=== PATIENT | female | born 1960 | race Caucasian/White ===

== ENCOUNTER 2017-03-10 14:37 | Emergency (ER) | payer OTHER ==
[~2017-03-10] VITALS: Ht 170.2 cm; Wt 44.2 kg
[2017-03-10 14:39] VITALS: BP 116/67; PULSE 82; RESP 16; TEMP 97.9; O2SAT 97
[2017-03-10] MEDS ORDERED: VITA10002 PO (14:54)
[2017-03-10] MEDS ORDERED: VITA100064 PO (14:54)
[2017-03-10] MEDS ORDERED: MULT1TAB46 PO (14:54)
[2017-03-10] MEDS ORDERED: ESTR1.25 PO (14:54)
[2017-03-10] MEDS ORDERED: HYDR-3580 PO (14:54)
--- NOTE | 2017-03-10 16:02 | PD ---
HPI Chief Complaint: Musculoskeletal Complaint Time Seen by Provider: 15:00 Travel History International Travel<30 days: No Contact w/Intl Traveler<30days: No Traveled to known affect area: No History of Present Illness HPI 56-year-old female presents to the emergency room for evaluation of left knee pain and swelling for the past 2 days. Patient states she noticed pain after bending and climbing a ladder while doing home improvement. States the swelling started this morning and has gradually worsened throughout the day. She denies any acute trauma or injury. Denies history of knee problems. States the pain radiates up into her groin. She had a knee brace on last night and woke up with left lower extremity edema that has since cleared. She has not been able to walk on it without severe pain. Patient has generalized to this anterior knee and worsened with range of motion. She reports occasional paresthesias. She took half of a Lortab yesterday without any relief in symptoms. PFSH Past Medical History Diminished Hearing: No Musculoskeletal: Yes (chronic back pain) Immunizations Current: Yes Tetanus Vaccination: < 5 Years Influenza Vaccination: No ?: Not Past Surgical History Hysterectomy: Yes Oral Surgery: Yes (implants) Tonsillectomy: Yes Other Surgery: Yes (breast aug) Social History Alcohol Use: No Tobacco Use: Yes (oc) Substance Use: No Allergies-Medications (Allergen,Severity, Reaction): Coded Allergies: Morphine (Verified Allergy, Unknown, 03/10/17) Naproxen (Verified Allergy, Unknown, 03/10/17) Tylenol (Verified Allergy, Unknown, 03/10/17) Uncoded Allergies: AVALOX (Allergy, Unknown, 03/10/17) Reported Meds & Prescriptions Reported Meds & Active Scripts Active Reported Hydrocodone-Acetaminophen 7.5-325 mg Tab 1 Tab PO Q4H PRN Multi Vitamin Daily (Multiple Vitamin) 1 Tab Tab 1 Tab PO DAILY Vitamin D (Cholecalciferol) 1,000 Unit Tab 1,000 Units PO DAILY Vitamin B-12 (Cyanocobalamin) 1,000 Mcg Tab 1,000 Mcg PO DAILY Premarin (Estrogens Conjugated) 1.25 Mg Tab 2.5 Mg PO DAILY Review of Systems Except as stated in HPI: all other systems reviewed are Neg Physical Exam Narrative GENERAL: Well-nourished, well-developed female in no acute distress. Afebrile. SKIN: Focused skin assessment warm/dry. No ecchymosis or erythema. HEAD: Normocephalic. EYES: No scleral icterus. No injection or drainage. NECK: Supple, trachea midline. No JVD or lymphadenopathy. CARDIOVASCULAR: Regular rate and rhythm without murmurs, gallops, or rubs. RESPIRATORY: Breath sounds equal bilaterally. No accessory muscle use. EXTREMITY: Left knee mildly tender to palpation. Full range of motion in all joints. No edema. Mild effusion of the left knee. 2+ dorsalis pedis pulse. Less than 2 second capillary refill distally. Data Data Last Documented VS Vital Signs Date Time Temp Pulse Resp B/P Pulse Ox O2 Delivery O2 Flow Rate FiO2 03/10/17 14:39 97.9 82 16 116/67 97 Orders Knee, Complete (4vws) (03/10/17 ) [facility] Medical Decision Making Medical Screen Exam Complete: Yes Emergency Medical Condition: Yes Medical Record Reviewed: Yes Differential Diagnosis Effusion, strain, sprain, fracture unlikely Narrative Course 56-year-old female presents to the emergency room for evaluation of left knee pain and swelling since yesterday. Patient denies any trauma or injury. States she has been climbing up and down ladders and pending while renovating her house. Left lower extremity is neurovascularly intact with 2+ dorsalis pedis pulse. Patient has full range of motion of the knee. No erythema, ecchymosis, or increased warmth. There is mild effusion of the left knee. No bony tenderness to palpation. X-ray is negative. Likely effusion due to overuse. Patient discharged with Diego bandage and crutches and told to follow- up with her primary care physician or return for worsening symptoms. She understands and agrees to plan. Diagnosis Primary Impression: Effusion, left knee Referrals: Primary Care Physician Patient Instructions: General Instructions, Swollen Knee Joint (ED) Additional Instructions: Rest and drink plenty of fluids. Use Diego wrap to prevent worsening of symptoms. Take ibuprofen with food as directed, as needed for pain. Elevate and apply ice to the affected area for 20 minutes at a time, as needed for pain and swelling. Follow-up with a primary care physician. Return to the emergency room for worsening symptoms. Med/Other Pt SpecificInfo: Prescription(s) given Disposition: 01 DISCHARGE HOME Condition: Stable Fabiana Maldonado Mar 10, 2017 16:02
--- NOTE | 2017-03-10 16:28 | RADHPO ---
EXAM DATE/TIME: 03/10/2017 15:41 [place] COMPARISON: No previous studies available for comparison. INDICATIONS : Left knee pain. MEDICAL HISTORY : None. SURGICAL HISTORY : None. ENCOUNTER: Initial ACUITY: 1 day PAIN SCORE: 5/10 LOCATION: Left knee. FINDINGS: Four view examination of the left knee demonstrates no evidence of fracture or dislocation. Bony min eralization is normal. The articular surfaces are intact. The suprapatellar soft tissues have a nor mal configuration. CONCLUSION: 1. No acute bony abnormality identified. Fred Rico MD on March 10, 2017 at 16:26 Board Certified Radiologist. This report was verified electronically.
== END 2017-03-10 16:47 | disposition home or self-care (01) ==
LOC: PHEFT 14:37
DX: M25.462 Effusion, left knee (principal); Z72.0 Tobacco use
CPT/HCPCS: 73564; 99283; E0113

== ENCOUNTER → 2017-04-08 | Outpatient (CLI) | payer OTHER ==
[~2017-04-08] MED LIST: ESTR1.25 PO; HYDR-3580 PO; IBUP200T2 PO; MULT1TAB46 PO; VITA10002 PO; VITA100064 PO
[2017-04-08 09:07] LABS: AUTOMATED NEUTROPHIL # 3.3 TH/MM3 (1.8-7.7); BASOPHIL % 0.7 % (0.0-2.0); EOSINOPHIL # 0.1 TH/MM3 (0-0.4); EOSINOPHIL % 1.9 % (0.0-4.0); HEMATOCRIT 43.7 % (35.0-46.0); HEMO FLAGS DIFF FINAL; LYMPH % 48.7 % (9.0-44.0); LYMPHOCYTE # 3.7 TH/MM3 (1.0-4.8); MEAN CORPUSCULAR HEMOGLOBIN 31.9 PG (27.0-34.0); MONO % 6.1 % (0.0-8.0); NEUT % 42.6 % (16.0-70.0); PLATELET COUNT 189 TH/MM3 (150-450); RED BLOOD COUNT 4.65 MIL/MM3 (4.00-5.30); RED CELL DISTRIBUTION WIDTH 13.3 % (11.6-17.2); WHITE BLOOD COUNT 7.7 TH/MM3 (4.0-11.0)
[2017-04-08 09:26] LABS: BACTERIA, URINE RARE /hpf; BLOOD, URINE NEG (NEG); COMMENT (UR) CULT NOT INDICATED; CULTURE IF INDICATED CULT NOT INDICATED; GLUCOSE,URINE NEG (NEG); KETONE, URINE NEG (NEG); MUCUS URINE FEW /lpf (OCC); NITRITE,URINE NEG (NEG); PH, URINE 5.5 (5.0-8.5); SQUAMOUS EPITHELIAL CELL URINE 6 /hpf (0-5); URINE COLOR YELLOW (YELLW/STRAW)
[2017-04-08 09:27] LABS: ANION GAP 5 MEQ/L (5-15); AST (GOT) 14 U/L (15-37); BICARBONATE 30.1 MEQ/L (21.0-32.0); BLOOD UREA NITROGEN 24 MG/DL (7-18); CHLORIDE 104 MEQ/L (98-107); GLOMERULAR FILTRATION RATE 76 ML/MIN (>89); GLUCOSE,FASTING 78 MG/DL (74-99); POTASSIUM 4.6 MEQ/L (3.5-5.1); SODIUM (NA) 139 MEQ/L (136-145)
[2017-04-08 09:28] LABS: APTT (PATIENT) 24.7 SEC (24.3-30.1); INTERNATIONAL NORMALIZED RATIO 0.9 RATIO; PROTHROMBIN TIME - PATIENT 10.2 SEC (9.8-11.6)
[2017-04-08 09:29] LABS: ALT (GPT) 19 U/L (10-53)
[2017-04-08 09:31] LABS: ALKALINE PHOSPHATASE 52 U/L (45-117); TOTAL BILIRUBIN ADULT 0.7 MG/DL (0.2-1.0)
--- NOTE | 2017-04-08 18:01 | EKG ---
Date Performed: 04/08/2017 Time Performed: 08:53:46 PTAGE: 56 years EKG: Sinus rhythm POSSIBLE RIGHT ATRIAL ENLARGEMENT LEFT ATRIAL ENLARGEMENT POSSIBLE RIGHT VENTRICULAR CONDUCTION VERONICA Y MILD ST DEPRESSION ABNORMAL ECG NO PREVIOUS TRACING DOCTOR: Chandan Ayala Interpretating Date/Time 04/08/2017 18:00:17
== END ==
LOC: CPRE 08:23
PROVIDERS: ATTEND Surgery
DX: Z01.810 Encounter for preprocedural cardiovascular examination (principal); Z01.812 Encounter for preprocedural laboratory examination; R94.31 Abnormal electrocardiogram [ECG] [EKG]
CPT/HCPCS: 36415; 80053; 81001; 85025; 85610; 85730; 93005

== ENCOUNTER → 2017-04-11 | Day surgery (SDC) | payer OTHER ==
--- NOTE | 2017-04-09 17:27 | MH ---
cc: Bassem DAVIES M.D. DATE OF ADMISSION 04/11/2017 ADMISSION DIAGNOSIS Posterior horn tear and body medial meniscus now being admitted for arthroscopy left knee. HISTORY OF THE PRESENT ILLNESS This pleasant 56-year-old female is being admitted today for arthroscopy of the left knee due to a torn medial meniscus. PAST MEDICAL HISTORY Other past history: 1. The patient has a history of neck pain. 2. And stomach ulcers CURRENT MEDICATIONS Include Premarin. PAST SURGICAL HISTORY Previous surgery, hysterectomy. SOCIAL HISTORY She does smoke cigarettes. Does not drink. REVIEW OF SYSTEMS Noncontributory. FAMILY HISTORY Noncontributory. ALLERGIES SHE IS ALLERGIC TO MORPHINE, TYLENOL, AVELOX, ALEVE, IMITREX, TRAMADOL AND TOPAMAX. PHYSICAL EXAMINATION GENERAL: We find a 56-year-old female well-developed, well-nourished, alert and oriented times three complaining of pain in her left knee. VITAL SIGNS: Blood pressure 110/70, pulse 71 and regular, respirations 18, temperature 97.8, pulse oximetry 97% on room air. HEENT: Eyes PERRL, EOMI. Ears, nose, mouth clear. NECK: Supple. LUNGS: Clear. HEART: Regular rate. ABDOMEN: Soft. Positive bowel sounds and nontender. EXTREMITIES: Reveal the left knee to be tender over the medial joint surface. She is neurovascularly intact to her toes. IMPRESSION At this time is torn medial meniscus left knee. PLAN Admission for arthroscopy of the left knee today. The patient given prescription for postoperative pain control in the office. MD BANG Dexter/COURTNEY /5:15 PM /5:22 PM
[~2017-04-11] VITALS: Ht 170.2 cm; Wt 44.6 kg
[~2017-04-11] MED LIST changes: +*HYDROmorphone PF 1 MG VIAL PERIprocedural Use ONLY ONE; +BUPIVACAINE/EPINEPHRINE 0.5% PF 10 ML VIAL INFIL ONE; +CHLORHEXIDINE GLUCONATE 2 % 1 PACK (2 CLOTHS) TOPICAL PRN; +CHLORHEXIDINE GLUCONATE 4% SOLN 120 ML BTL TOPICAL SCH; +DO NOT ADM ANY ANTICOAGULANT DRUGS PRN; +EXPAREL PERI-ARTICULAR INJECTION (TOTAL VOL. 60 ML) P-ARTICULR SCH; +INSULIN HUMAN REGULAR 1,000 UNITS/10 ML VIAL SQ PRN; +KETOROLAC TROMETHAMINE 60 MG/2 ML (IM) VIAL IM ONE; +LACTATED RINGER'S 1000 ML INJ 1,000 ML IV ONE; +LACTATED RINGER'S 1000 ML IV PRN; +MEPERIDINE HCL 50 MG/ML VIAL IM PRN; +METOPROLOL TARTRATE 25 MG TAB PO PRN; +ONDANSETRON HCL 4 MG/2 ML VIAL IV PUSH ONE; +ONDANSETRON ODT 4 MG TAB PO PRN; +POVIDONE IODINE 5% (ANTISEPSIS KIT) 4 APPLICATIONS EACH NARE PRN; +PROPOFOL 200 MG/20 ML AMP IV ONE; +SODIUM CHLORID 0.9% 500 ML IV PRN; +ceFAZolin 2 GM PREMIX 50 ML IV SCH; +ceFAZolin 2 GM PREMIX 50 ML ONE; +ePHEDrine/NS 25 MG/5 ML SYR IV ONE
[2017-04-11 08:19] VITALS: BP 104/61; PULSE 60; RESP 16; TEMP 97.8; O2SAT 99
--- NOTE | 2017-04-11 11:45 | HHI.PR ---
Immediate Post Op Note Procedure Date: Apr 11, 2017 Pre Op Diagnosis: Posterior horn tear and body tear Post Op Diagnosis: Posterior horn tear and body meniscus; Bucket handle tear Surgeon: Danielle Leon MD Oil Lease Buyer(s): Queenie RODRIGUEZ Procedure: Left Knee Arthroscopy and debridement Findings: Posterior horn tear and body meniscus; Bucket handle tear Complications: none Specimen(s) removed: none Estimated blood loss: 30cc Anesthesia: General Drains: None IVF Tourniquet time (min at mmHg) none Patient to: PACU Patient Condition: Good Queenie Maier Apr 11, 2017 11:45
[2017-04-11 13:59] VITALS: BP 112/65; PULSE 62; RESP 16; TEMP 98.1; O2SAT 99
--- NOTE | 2017-04-13 16:54 | MP ---
cc: Bassem DAVIES M.D. DATE OF SURGERY: 04/11/2017. PREOPERATIVE DIAGNOSIS: Torn medial meniscus left knee. POSTOPERATIVE DIAGNOSIS: Torn medial meniscus left knee, bucket handle complex tear medial meniscus, left knee. OPERATIVE PROCEDURE PERFORMED: Arthroscopy, excision of torn bucket-handle complex tear medial meniscus left knee. SURGEON: Bassem Davies MD. DATA REPORTING ANALYST: MICHAEL Schmitz. ANESTHESIA: Laryngeal mask anesthesia. DESCRIPTION OF THE PROCEDURE IN DETAIL: The patient was brought to the operating room and placed on the operating room table in the supine position. After successful induction of general anesthesia, the patient's left leg was prepped and draped in the usual manner. The knee was then placed in a knee atkinson and tightened. Arthroscopic examination was then performed by making a stab wound over the proximal superior and medial aspect of the patellofemoral joint for insertion of the inflow cannula and fluid, followed by stab wounds over the medial and lateral joint margins respectively for insertion of the arthroscope, shaver and probe. Arthroscopic examination was then performed which revealed intact lateral compartment, intact anterior cruciate, intact patellofemoral joint, medial compartment found to have a very large complex tear with a bucket handle component involving the medial meniscus which was removed using ArthroCare cutter/shaver probe and the ArthroCare System and michael to afford a smooth surface. The rest of the medial compartment was found to be intact. The wound was irrigated copiously with lactated Ringer's solution. Excess fluid was removed. 10 cc of 0.25% Marcaine plain was inserted around the knee joint for extra pain control. The skin was approximated with interrupted 3-0 Monocryl suture. Sterile dressing and high-high NICK wrap applied. No tourniquet was utilized. MICHAEL Schmitz was present during the entire procedure to include patient positioning and the procedure. The medical necessity of a nurse practitioner and chemistry research assistant was indicated in this case due to the surgical complexity of the case itself. During the surgical case, the biotechnician was working at the back table while my assistant engineer / MARINE OPERATIONS COORDINATOR was directly assisting me. The estimated blood loss was 10 cc. Sponge and suture counts were correct. The patient tolerated the procedure well and left the operating room in satisfactory condition. J. MD BANG Bradley/HONEY /11:36 AM /4:51 PM
== END | disposition home or self-care (01) ==
LOC: HSDC 07:21
PROVIDERS: ATTEND Surgery
DX: S83.212A Bucket-handle tear of medial meniscus, current injury, left knee, initial encounter (principal); F17.210 Nicotine dependence, cigarettes, uncomplicated; X58.XXXA Exposure to other specified factors, initial encounter
CPT/HCPCS: 01400; 29881; J0690; J1170; J1885; J2405; J3010; J7120